=== PATIENT | male | born 1985 | race American Indian/Alaskan Native ===

== ENCOUNTER 2019-06-20 07:12 | Outpatient (CLI) | payer OTHER ==
[~2019-06-20 07:12] MED LIST: HEPARIN/ 0.45% NACL DRIP 0 UNIT/0 ML BAG ONE
--- NOTE | 2019-06-20 09:06 | Magnetic Resonance Report ---
MRI left ankle without contrast INDICATION: LEFT FOOT PAIN. Posterior ankle pain COMPARISON: None FINDINGS: There is no acute osseous abnormality or malalignment. Mild degenerative changes are prese nt in the tarsals. There is a type II accessory navicular with no significant inflammatory change karyn ntified. Normal fat signal in the sinus Tarsi. There is gross thickening of the Achilles tendon with intermediate internal fluid signal but no linea r signal to suggest a tear. There is also mild surrounding edema especially near the myotendinous joyce ction. Remaining tendons about the ankle are all intact. The lateral, syndesmotic, and deltoid complex ligaments are all intact. IMPRESSION: 1. Moderate to severe Achilles tendinosis. 2. 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 Signer Name: Tunde Kearney MD Signed: 06/20/2019 9:01 AM Workstation Name: [id number]
== END 2019-06-20 07:13 | disposition home or self-care (01) ==
LOC: MRI 07:12
PROVIDERS: ATTEND Nurse Practitioner
DX: S86.022A Laceration of left Achilles tendon, initial encounter (principal); X58.XXXA Exposure to other specified factors, initial encounter; Y93.89 Activity, other specified; Y92.89 Other specified places as the place of occurrence of the external cause; Y99.8 Other external cause status
CPT/HCPCS: 73721; J1644